=== PATIENT | female | born 1955 | race Caucasian/White ===

== ENCOUNTER → 2018-03-31 | Outpatient (CLI) | payer OTHER ==
[~2018-03-31] MED LIST: ACET500T68 PO; ATOR10TA65 PO; CEPH500C24 PO; DOCU-416 PO; ESTR1PAT72 TD; IBUP600T22 PO; MULT-885 PO; NITR-1 PO; OXYB10TA16 PO; OXYC-865 PO; PER PO; PHEN200T32 PO; SIMV-42 PO; SULF-198 PO; TAMS0.4C25 PO
--- NOTE | 2018-04-03 18:01 | RADIOLOGY IMAGING REPORT ---
FACILITY: [facility] - [place] PATIENT NAME: CRISTINA CAMARENA : [id number] MR: [id number] V: [id number] EXAM DATE: [id number] ORDERING PHYSICIAN: YVONNE SIMPSON TECHNOLOGIST: Mayela Del Rosario PROCEDURE:BILATERAL DIGITAL SCREENING MAMMOGRAM WITH CAD ASSISTED INTERPRETATION & 3D TOMOSYNTHESIS COMPARISON:Prior mammograms 03/21/17, 03/12/16, 03/11/15, 03/07/14, 08/30/13. INDICATIONS:screening FINDINGS: Dense heterogeneous fibroglandular tissue is seen throughout the breasts. The parenchymal pattern has remained stable allowing for difference in mammographic technique & patient positioning. There is no evidence of malignant appearing mass, malignant appearing calcifications or other secondary sign of malignancy in either breast. DIAGNOSTIC CATEGORY 1--NEGATIVE. RECOMMENDATIONS: ROUTINE MAMMOGRAM AND CLINICAL EVALUATION. IMPRESSION: BIRADS 1: Negative. No significant abnormality is seen. Dictated by: Juana Quinones M.D. on 04/03/2018 at 11:08 Transcribed by: JOHNY on 04/03/2018 at 13:23 Approved by: Juana Quinones M.D. on 04/03/2018 at 18:00 [facility]
== END ==
LOC: MAMO 00:54
PROVIDERS: ATTEND Family Medicine
DX: Z12.31 Encounter for screening mammogram for malignant neoplasm of breast (principal)
CPT/HCPCS: 77063; 77067

== ENCOUNTER → 2018-11-20 | Outpatient (CLI) | payer OTHER ==
--- NOTE | 2018-11-20 15:01 | RADIOLOGY IMAGING REPORT ---
FACILITY: [facility] - [place] PATIENT NAME: Sveta Espinoza : 1955 MR: [id number] V: [id number] EXAM DATE: ORDERING PHYSICIAN: MILAD RANDLE TECHNOLOGIST: Location: [facility] Patient: Sveta Espinoza : 1955 Visit/Account:[id number] Date of Sevice: 11/20/2018 DEXA Scan Clinical history: Postmenopausal. Comparison: DEXA scan from 1116. LUMBAR SPINE: The bone mineral density (BMD) measured from L1-L4 correlates with a Z-score of 0.9 and a T-score of -0.4 which is Normal as defined by the World Health Organization. The corresponding risk of fracture in the lumbar spine is Not increased compared with a young adult reference population. This value h as decrease by 1.2 % since the prior study. More than 5% change is considered significant. HIP: Bone mineral density (BMD) measured in the LEFT total hip region correlates with a Z-score -0.9 and a T-score of -1.9 which is osteopenia as defined by the World Health Organization. The corresponding risk of fracture in the hip is 3-4 times increased compared to a young adult reference population. Th is value has decrease by 0.3 % since the prior study. More than 5% change is considered significant. T score left femoral neck -2.2 Bone mineral density (BMD) measured in the Femoral Neck region measures 0.728 g/cm?. IMPRESSION: 1. Lumbar spine: Normal. There has been 1.2% decrease in the bone mineral density since the previou s exam. 2. Left Total Hip: Osteopenia. There has been 0.3% decrease in the bone mineral density since the p revious exam. 3. Femoral Neck: Bone Mineral Density is 0.728 g/cm? The next DEXA scan of this patient should include the following sites: L1-L4 and the left hip. FRAX? WHO Fracture Risk Assessment Tool link: <http://www.shef.ac.uk/FRAX/tool.jsp?locationValue=9> PLEASE NOTE: 1) The World Health Organization defines low BMD as follows: T-score Normal > -1 Osteopenia < -1 and > -2.5 Osteoporosis < -2.5 without fractures Established osteoporosis < -2.5 with fractures 2) In general, you may wish to consider: Diagnosis Treatment Follow-up DEXA Normal BMD Prevention 2-3 years Osteopenia Prevention/therapy 1-2 years Osteoporosis Therapy Yearly 3) Fracture risk estimated from the T-score is more accurate for vertebral fractures (often spontane ous) than for hip fractures. Report Dictated By: Juana Quinones MD at 11/20/2018 2:56 PM Report E-Signed By: Juana Quinones MD at 11/20/2018 2:57 PM WSN:[email or web address]
== END ==
LOC: RAD 13:06
PROVIDERS: ATTEND Physician Assistant
DX: M85.88 Other specified disorders of bone density and structure, other site (principal)
CPT/HCPCS: 77080

== ENCOUNTER → 2019-05-01 | Outpatient (CLI) | payer OTHER ==
--- NOTE | 2019-05-08 10:04 | RADIOLOGY IMAGING REPORT ---
FACILITY: [facility] PATIENT NAME: CRISTINA CAMARENA : [id number] MR: [id number] V: [id number] EXAM DATE: [id number] ORDERING PHYSICIAN: YVONNE SIMPSON TECHNOLOGIST: Nimisha Monroy PROCEDURE: BILATERAL DIGITAL SCREENING MAMMOGRAM WITH CAD ASSISTED INTERPRETATION & 3D TOMOSYNTHESIS. REASON FOR STUDY: Screening. COMPARISON: [facility]. VIEWS OBTAINED: 2D & 3D full field CC & MLO projections. BREAST DENSITY: The breasts are heterogeneously dense. MAMMOGRAM FINDINGS: Benign appearing asymmetries are scattered bilaterally, essentially unchanged. IMPRESSION: BIRADS 1: Negative. DIAGNOSTIC CATEGORY 1--NEGATIVE. RECOMMENDATIONS: ROUTINE MAMMOGRAM AND CLINICAL EVALUATION IN 1YR. Dictated by: Sean Reed M.D. on 05/02/2019 at 8:55 Transcribed by: JOHNY on 05/02/2019 at 9:54 Approved by: Marissa Bundy M.D. on 05/08/2019 at 10:00 [facility]
== END ==
LOC: MAMO 00:47
PROVIDERS: ATTEND Family Medicine
DX: Z12.31 Encounter for screening mammogram for malignant neoplasm of breast (principal); Z80.3 Family history of malignant neoplasm of breast
CPT/HCPCS: 77063; 77067